=== PATIENT | female | born 1955 | race Caucasian/White ===

== ENCOUNTER 2021-09-18 18:53 | Inpatient (IN) | payer BC ==
[~2021-09-18] VITALS: Ht 167.6 cm; Wt 84.6 kg
--- NOTE | 2021-09-18 19:00 | NUR ---
[email or web address], medical screening exam in progress
--- NOTE | 2021-09-18 19:02 | NUR ---
Nursing SBAR to EDGAR Gasca.
[2021-09-18] MEDS ORDERED: methylPREDNISolone SOD SUCC 125 MG/2 ML VIAL ONE (19:07)
[2021-09-18] MEDS ORDERED: IBERSARTAN (19:10)
[2021-09-18] MEDS ORDERED: DILTIAZEM (19:10)
--- NOTE | 2021-09-18 19:13 | NUR ---
Assumed care of patient. On 2L NC satting 96%. States that she feels better and denies trouble breathing at this time.
[2021-09-18] MEDS ORDERED: methylPREDNISolone SOD SUCC 125 MG/2 ML VIAL IV ONE (19:15)
[2021-09-18 19:56] LABS: HEMATOCRIT 35.1 % (31.2-41.9); MEAN CORPUSCULAR VOLUME 89.2 fL (75.5-95.3); PLATELET COUNT (AUTO) 296 K/uL (179-408)
[2021-09-18 20:06] LABS: BILIRUBIN,DIRECT 0.1 mg/dL (0.0-0.2); BILIRUBIN,TOTAL 0.3 mg/dL (0.2-1.0); TOTAL PROTEIN, SERUM 6.8 g/dL (6.4-8.2)
[2021-09-18 20:14] LABS: POTASSIUM 2.7 mmol/L (3.5-5.1)
[2021-09-18] MEDS ORDERED: POTASSIUM CHLORIDE 20 MEQ TAB.PRT.SR ONE (20:18)
[2021-09-18] MEDS ORDERED: POTASSIUM CHLORIDE 20 MEQ TAB.PRT.SR PO ONE (20:30)
--- NOTE | 2021-09-18 21:00 | NUR ---
Pt sitting up in bed, resting. Titrated to 1L NC, satting 98%. Denies SOB. Able to make needs known.
[2021-09-18] MEDS ORDERED: EPIN0.3P3 IM (21:49)
--- NOTE | 2021-09-18 23:30 | NUR ---
Pt satting 97% on RA. Denies SOB.
--- NOTE | 2021-09-19 00:05 | NUR ---
Elda Fernandez paged for Epic
--- NOTE | 2021-09-19 00:09 | NUR ---
Elda Fernandez MORALE OFFICER speaking with Dr. Hackett
[2021-09-19] MEDS ORDERED: MAGNESIUM HYDROXIDE 30 ML LIQUID UDC PO PRN (00:15)
[2021-09-19] MEDS ORDERED: ACETAMINOPHEN 325 MG TABLET PO PRN (00:15)
[2021-09-19] MEDS ORDERED: ONDANSETRON 4 MG/2 ML VIAL IV PRN (00:15)
[2021-09-19] MEDS ORDERED: REMEDY ESSENTIAL ZINC PASTE 113 GM TP PRN (00:15)
[2021-09-19] MEDS ORDERED: IV NS 1000 ML 1,000 ML IV PRN (00:15)
--- NOTE | 2021-09-19 00:32 | NUR ---
Report given to Reena HERNÁNDEZ. Pt going to room 304
--- NOTE | 2021-09-19 01:15 | NUR ---
Received patient via wheelchair. Patient is being admitted to room 304-telemetry, with admitting diagnosis of Acute Respiratory Failure and under the primary care of Elda Fernandez NP. Patient is AAOX4, able to make needs known. Oriented patient to room, bed and call light button. Sinus rhythm on telemetry, shows no signs of difficulty of breathing. V/S are within normal limits. Initial physical assessment done. No skin issues noted. To be kept on NPO status. Aspiration and safety precautions initiated. Will continue to monitor.
--- NOTE | 2021-09-19 01:28 | NUR ---
Pt. admitted to Tele room 304, under care of Elda Fernandez CONTENT MANAGEMENT SPECIALIST Belongs List completed. Pt taken upstairs via wheelchair in stable condition.
[2021-09-19 01:30] VITALS: BP 128/79
[2021-09-19] MEDS: methylPREDNISolone SOD SUCC 40 MG/ML VIAL IV SCH ×3 (01:54→13:57)
--- NOTE | 2021-09-19 02:10 | NUR ---
Patient passed bedside swallow evaluation. Advised Edla Fernandez NP advised to start off with clear liquids and then diet as tolerated.
[2021-09-19 04:51] VITALS: BP 116/66
--- NOTE | 2021-09-19 06:05 | NUR ---
Pt slept through the night with no complaints. SR on tele monitor. Shows no signs of SOB. Ambulatory. Will endorse to day shift.
[2021-09-19 11:30] LABS: MEAN CORPUSCULAR HEMOGLOBIN 30.6 uug (24.7-32.8); MEAN CORPUSCULAR VOLUME 88.5 fL (75.5-95.3); PLATELET COUNT (AUTO) 288 K/uL (179-408)
[2021-09-19 11:38] LABS: CREATININE 0.9 mg/dL (0.6-1.3); POTASSIUM 3.7 mmol/L (3.5-5.1)
[2021-09-19 12:00] VITALS: BP 123/70
[2021-09-19] MEDS ORDERED: EPIN0.3P3 IM (12:52)
[2021-09-19] MEDS ORDERED: HYDR12.55 PO (12:52)
[2021-09-19] MEDS ORDERED: PRED20TA PO (12:52)
--- NOTE | 2021-09-19 14:15 | NUR ---
Discharge instructions given to patient. Pt denies any c/o swallowing difficulties. Pt tolerating soft diet. IV taken out. Pt verbalized understanding. Instructed to f/u with PMD within 1 week. E-prescription sent to pt's preferred pharmacy.
== END 2021-09-19 14:10 | disposition home or self-care (01) | DRG 916 ==
LOC: ER 18:55 → MEDSURG3 09-19 00:45 → TELE3 09-19 01:13
PROVIDERS: ADMIT Nurse Practitioner Family; ATTEND Nurse Practitioner Family
DX: T78.09XA Anaphylactic reaction due to other food products, initial encounter (principal); E44.1 Mild protein-calorie malnutrition; E87.6 Hypokalemia; E03.9 Hypothyroidism, unspecified; E88.09 Other disorders of plasma-protein metabolism, not elsewhere classified; I10 Essential (primary) hypertension; M19.90 Unspecified osteoarthritis, unspecified site; R73.9 Hyperglycemia, unspecified; Z20.822 Contact with and (suspected) exposure to COVID-19; Z68.30 Body mass index [BMI] 30.0-30.9, adult
CPT/HCPCS: 36415; 83690; 83735; 85025; A4663; G0378; J2920; J2930; J7040